=== PATIENT | female | born 1960 | race Two or more races ===

== ENCOUNTER → 2022-05-26 | Day surgery (SDC) | payer BC ==
[2022-05-25 09:12] LABS: Basophils # (auto) 0.1 10 ^3/uL (0-0.2); Basophils % (auto) 0.9 % (0.0-2.0); Eosinophils # (auto) 0.2 10 ^3/uL (0-0.8); Hematocrit 42.5 % (36.0-46.0); Hemoglobin 14.1 g/dL (12.2-16.2); Lymphocytes # (auto) 2.3 10 ^3/uL (0.4-5.4); Lymphocytes % (auto) 28.6 % (10.0-50.0); Mean Corpuscular Hemoglobin 30.4 pg (28.0-32.0); Mean Corpuscular Hgb Conc. 33.2 g/dL (32.0-36.0); Mean Corpuscular Volume 91.7 fL (80.0-100.0); Monocytes # (auto) 0.4 10 ^3/uL (0-1.3); Monocytes % (auto) 5.2 % (0.0-12.0); Neutrophils # (auto) 5.2 10 ^3/uL (1.6-8.6); Neutrophils % (auto) 63.3 % (37.0-80.0); Red Blood Cells 4.64 10^6/uL (4.0-5.20); Red Cell Distribution Width 13.3 % (11.8-14.3); White Blood Cell 8.2 10^3/uL (4.4-10.8)
[2022-05-25 09:27] LABS: INR 1.11 (0.9-1.15); Partial Thromboplastin Time 31.1 sec (24.6-33.4)
[2022-05-25 09:44] LABS: Calcium 8.4 mg/dL (8.5-10.1); Potassium 3.6 mmol/L (3.5-5.1)
[2022-05-25 09:48] LABS: BUN/Creatinine Ratio 20.5; Bilirubin, Total 0.5 mg/dL (0.2-1.0); Total Protein 7.1 g/dL (6.4-8.2)
[~2022-05-26] VITALS: Ht 170.2 cm; Wt 65.8 kg
[2022-05-26] MEDS: diphenhdrAMINE HCL 50 MG/1 ML VL ONE ×2 (14:26→14:28)
[2022-05-26] MEDS: MIDAZOLAM HCL 2MG/2ML 2ml VIAL (1mg/ml) ONE ×3 (14:26→14:34)
[2022-05-26] MEDS: fentaNYL CITRATE 100 MCG/2 ML VL ONE ×2 (14:26→14:30)
[2022-05-26 15:30] VITALS: BP 147/77
== END | disposition home or self-care (01) ==
LOC: GI 12:46
PROVIDERS: ATTEND Internal Medicine Gastroenterology
DX: K57.30 Diverticulosis of large intestine without perforation or abscess without bleeding (principal); M62.89 Other specified disorders of muscle; K58.1 Irritable bowel syndrome with constipation; K64.0 First degree hemorrhoids; Z98.890 Other specified postprocedural states; K63.5 Polyp of colon
CPT/HCPCS: 36415; 45385; 80053; 85025; 85610; 85730; J1200; J2250; J3010; J7030; U0003; 99152; 99153

== ENCOUNTER → 2022-07-10 | Outpatient (CLI) | payer BC ==
[2022-07-10 09:18] LABS: Basophils # (auto) 0.1 10 ^3/uL (0-0.2); Basophils % (auto) 1.4 % (0.0-2.0); Eosinophils # (auto) 0.2 10 ^3/uL (0-0.8); Eosinophils % (auto) 3.6 % (0.0-7.0); Hematocrit 40.9 % (36.0-46.0); Hemoglobin 13.7 g/dL (12.2-16.2); Lymphocytes # (auto) 2.8 10 ^3/uL (0.4-5.4); Lymphocytes % (auto) 43.6 % (10.0-50.0); Mean Corpuscular Hemoglobin 30.3 pg (28.0-32.0); Mean Corpuscular Hgb Conc. 33.4 g/dL (32.0-36.0); Mean Corpuscular Volume 90.7 fL (80.0-100.0); Monocytes # (auto) 0.5 10 ^3/uL (0-1.3); Monocytes % (auto) 7.1 % (0.0-12.0); Neutrophils # (auto) 2.9 10 ^3/uL (1.6-8.6); Neutrophils % (auto) 44.3 % (37.0-80.0); Nucleated Red Blood Cells % 0.1 %; Red Blood Cells 4.51 10^6/uL (4.0-5.20); Red Cell Distribution Width 13.9 % (11.8-14.3); White Blood Cell 6.5 10^3/uL (4.4-10.8)
[2022-07-10 10:07] LABS: Potassium 4.1 mmol/L (3.5-5.1)
[2022-07-10 15:57] LABS: Bilirubin, Total 0.5 mg/dL (0.2-1.0); Calcium 8.8 mg/dL (8.5-10.1)
[2022-07-10 15:58] LABS: Albumin 3.8 g/dL (3.4-5.0)
== END | disposition home or self-care (01) ==
LOC: LAB 08:20
PROVIDERS: ATTEND Internal Medicine
DX: Z00.00 Encounter for general adult medical examination without abnormal findings (principal)
CPT/HCPCS: 36415; 80053; 80061; 84443; 84481; 85025